=== PATIENT | female | born 1970 | race African-American/Black ===

== ENCOUNTER 2020-07-24 12:30 | Emergency (ER) | payer OTHER ==
[~2020-07-24] VITALS: Ht 172.7 cm; Wt 95.0 kg
[2020-07-24] MEDS ORDERED: KETOROLAC 30MG/ML VIAL IM ONE (13:30)
[2020-07-24] MEDS ORDERED: CYCLOBENZAPRINE 10MG TABLET PO ONE (14:15)
[2020-07-24] MEDS ORDERED: CYCLOBENZAPRINE 10MG TABLET PO SCH (14:30)
[2020-07-24 15:30] VITALS: BP 132/78
== END 2020-07-24 15:30 | disposition home or self-care (01) ==
LOC: ER 12:43
DX: M54.5 Low back pain (principal); R03.0 Elevated blood-pressure reading, without diagnosis of hypertension
CPT/HCPCS: 72100; 96372; 99283; J1885